=== PATIENT | male | born 1970 | race Two or more races ===

== ENCOUNTER 2021-06-02 19:28 | Emergency (ER) | payer MEDICAID ==
[~2021-06-02] VITALS: Ht 185.4 cm; Wt 130.0 kg
[2021-06-02] MEDS ORDERED: INDO50CA98 MT (20:13)
[2021-06-02] MEDS ORDERED: AMLODIPINE 5MG TABLET PO ONE (20:15)
[2021-06-02] MEDS ORDERED: KETOROLAC 60MG/2ML VIAL IM ONE (20:15)
[2021-06-02 20:53] VITALS: BP 211/106
== END 2021-06-02 20:56 | disposition home or self-care (01) ==
LOC: ER 19:28
DX: M10.041 Idiopathic gout, right hand (principal); I16.0 Hypertensive urgency
CPT/HCPCS: 96372; 99283; J1885

== ENCOUNTER 2024-02-14 20:47 | Emergency (ER) | payer MEDICAID ==
[~2024-02-14] VITALS: Ht 185.4 cm; Wt 134.0 kg
[~2024-02-14 20:47] MED LIST: INDO50CA98 MT
[2024-02-14 21:23] VITALS: TEMP 98.6; O2SAT 97
[2024-02-14 22:11] VITALS: BP 163/94; PULSE 96; RESP 18
[2024-02-14] MEDS: KETOROLAC 60MG/2ML VIAL IM ONE (22:11)
[2024-02-14] MEDS ORDERED: NAPR-681 MT (23:19)
== END 2024-02-14 23:26 | disposition home or self-care (01) ==
LOC: ER 20:47
DX: M10.9 Gout, unspecified (principal); E11.9 Type 2 diabetes mellitus without complications; I10 Essential (primary) hypertension
CPT/HCPCS: 99283; 73120; 96372; J1885